=== PATIENT | female | born 2000 | race African-American/Black ===

== ENCOUNTER 2024-10-27 20:46 | Emergency (ER) | payer MEDICAID ==
[~2024-10-27] VITALS: Ht 160 cm; Wt 63.0 kg
[2024-10-27] MEDS ORDERED: PREDNISONE 20MG TABLET PO ONE (21:30)
[2024-10-27 22:08] LABS: HEMATOCRIT. 45.7 % (36.0-48.0); HEMOGLOBIN. 15.4 g/dL (12.0-16.0); MEAN CORPUSCULAR HEMOGLOBIN 31.9 pg (28.0-32.0); MEAN CORPUSCULAR HGB CONC 33.6 g/dL (31.0-37.0); MEAN CORPUSCULAR VOLUME 94.8 fL (81.0-99.0); MEAN PLATELET VOLUME 8.9 fl (7.4-10.4); PLATELET 309 x1000/uL (130-400); RED BLOOD CELL COUNT 4.82 mill/uL (4.2-5.4); RED CELL DISTRIBUTION WIDTH 13.7 % (11.6-14.6); WHITE BLOOD COUNT 17.4 x1000/uL (4.5-11.0)
[2024-10-27 22:09] LABS: DIFFERENTIAL COMMENT 1
[2024-10-27 22:21] LABS: CHLORIDE 103 mEq/L (98-107); POTASSIUM 3.5 mEq/L (3.5-5.1); SODIUM 137 mEq/L (136-145)
[2024-10-27 22:22] LABS: CARBON DIOXIDE 25 mEq/L (21-32)
[2024-10-27 22:23] LABS: CALCIUM 9.9 mg/dL (8.7-10.4)
[2024-10-27 22:24] LABS: HCG SCREEN NEGATIVE
[2024-10-27 22:27] LABS: CREATININE 0.6 mg/dL (0.6-1.0); GLUCOSE 111 mg/dL (70-105); UREA NITROGEN BLOOD 8 mg/dL (9-23)
[2024-10-27 22:30] LABS: PLATELET ESTIMATE NORMAL
[2024-10-27 22:32] LABS: TROPONIN I HIGH SENSITIVITY < 4 ng/L (3.0-34)
[2024-10-27] MEDS: IPRATROPIUM/ALBUTEROL 0.5-3(2.5)MG/3ML NEB HHN ONE (22:37)
[2024-10-27 22:40] VITALS: PULSE 82; RESP 20; O2SAT 96
[2024-10-27] MEDS: SODIUM CHLORIDE 0.9% 1,000 ML IV ONE (23:25)
[2024-10-27 23:28] LABS: TROPONIN I HIGH SENSITIVITY < 4 ng/L (3.0-34)
[2024-10-27] MEDS: PREDNISONE 20MG TABLET PO NR (23:41)
[2024-10-28 00:50] VITALS: BP 128/85; PULSE 105; RESP 18; TEMP 36.66960; O2SAT 100
[2024-10-28] MEDS ORDERED: P20 MT (00:50)
[2024-10-28] MEDS ORDERED: LEVO750T68 MT (00:50)
[2024-10-28] MEDS ORDERED: ALBU18HF2 IH (00:50)
== END 2024-10-28 00:50 | disposition home or self-care (01) ==
LOC: ER 20:46
DX: J45.909 Unspecified asthma, uncomplicated (principal); J18.9 Pneumonia, unspecified organism
CPT/HCPCS: 80048; 84703; 83605; 85025; 84484; 36415; 71045; 94640; 93005; 99285; J7512; J7030; Z7610 ×2